=== PATIENT | female | born 1990 | race African-American/Black ===

== ENCOUNTER 2019-09-17 09:40 | Emergency (ER) | payer MEDICAID ==
[~2019-09-17] VITALS: Ht 165.1 cm; Wt 73.0 kg
--- NOTE | 2019-09-17 10:32 | Emergency Room Report ---
History of Present Illness General Chief Complaint: Upper Respiratory Illness Source: Patient Present Illness HPI Disclaimer: Please note that this report is being documented using DRAGON technology. This can lead to erroneous entry secondary to incorrect interpretation by the dictating instrument. HPI: Otherwise healthy 29-year-old female presents for evaluation of cough. Symptoms present for 3 days. She notes a persistent nonproductive cough and chest congestion. Denies fevers, chills, sore throat, nasal congestion, rhinorrhea, abdominal pain, nausea, vomiting, fever, chills. She feels a little bit weak. Last night she felt wheezy. Otherwise in her usual state of health. No history of asthma or other respiratory disease. Allergies: Coded Allergies: No Known Allergies (Unverified , 09/17/19) Patient History Now: No Review of Systems All Other Systems: negative except mentioned in HPI Physical Exam Vital Signs Date Time Temp Pulse Resp B/P (MAP) Pulse Ox O2 Delivery O2 Flow Rate FiO2 09/17/19 09:49 97.9 60 18 138/91 (107) 99 Room Air General: Awake and alert, no acute distress HEENT: NC/AT. EOMI. PERRLA. Moist mucous membranes. Throat is nonerythematous , no edema, no exudate. Tympanic membranes are pearly bell nonbulging with clear landmarks and no effusions bilaterally. Resp: Normal work of breathing. Mild cough appreciated. There are some coarse upper respiratory sounds reserve radiating down into the chest but otherwise no crackles, no wheezes. Skin: Intact. No abrasions, laceration or rash over the exposed skin MSK: Normal tone and bulk. Moving all extremities. No obvious deformity. Neuro: Awake and alert. Mentating appropriately Medical Decision Making Diagnostic Impression: Primary Impression: Cough Additional Impression: Respiratory tract infection ER Course 29-year-old female presents for evaluation of 3 days cough and chest congestion. She is very concerned and anxious that she may have a possible pneumonia as she has had in the past. We did obtain an x-ray which shows no evidence of infiltrate effusion or other abnormalities. Likely a viral syndrome. Will discharge with symptomatic medication. She can follow-up with her PMD. We discussed reasons to return to the emergency department. She understands and agrees with this treatment plan. Chest X-Ray Diagnostic Results Chest X-Ray Diagnostic Results : Chest X-Ray Ordered: Yes # of Views/Limited/Complete: 1 View Indication: Shortness of Breath Interpretation: no consolidation, no effusion, no pneumothorax, no acute cardiopulmonary disease Impression: No acute disease Electronically Signed by: Electronically signed by Dr. Lester Perales Last Vital Signs Date Time Temp Pulse Resp B/P (MAP) Pulse Ox O2 Delivery O2 Flow Rate FiO2 09/17/19 09:49 97.9 60 18 138/91 (107) 99 Room Air Disposition: HOME, SELF-CARE Condition: Stable Scripts Guaifenesin/Codeine (Guaifenesin-Codeine Syrup) 5 Ml Liquid 5 ML ORAL Q6H PRN for For Cough, #118 ML Prov: Lester Perales MD 09/17/19 Lester Perales MD Sep 17, 2019 10:32
--- NOTE | 2019-09-17 11:09 | Diagnostic Imaging Report ---
Indication: Cough Comparison: None A single view chest radiograph was obtained. Findings: Cardiomediastinal appearance is within normal limits for age. The lungs are clear. Pulmonary vascularity is appropriate. The diaphragmatic contour is smooth and costophrenic angles are sharp. No pleural effusions are identified. The bones are unremarkable. Impression: No acute findings
[2019-09-17] MEDS ORDERED: ROBITUSSIN AC5 ML ORAL (11:10)
--- NOTE | 2019-09-17 11:15 | NUR ---
ER DISCHARGE NOTE: Patient is cleared to be discharged per ERMD, pt is aox4, on room air, with stable vital signs. pt was given dc and prescription instructions, pt was able to verbalize understanding, pt is able to ambulate with steady gait. pt took all belongings.
[2019-09-17 12:29] VITALS: BP 138/91
== END 2019-09-17 11:20 | disposition home or self-care (01) ==
LOC: EMR 10:30
DX: J98.8 Other specified respiratory disorders (principal); R05 Cough
CPT/HCPCS: 71045; Z7502; 99283

== ENCOUNTER 2020-07-15 19:34 | Emergency (ER) | payer MEDICAID ==
[~2020-07-15] VITALS: Ht 165.1 cm; Wt 81.6 kg
[~2020-07-15 19:34] MED LIST: ROBITUSSIN AC5 ML ORAL
--- NOTE | 2020-07-15 20:47 | Emergency Room Report ---
Physical Exam Vital Signs Date Time Temp Pulse Resp B/P (MAP) Pulse Ox O2 Delivery O2 Flow Rate FiO2 07/15/20 19:46 97.9 75 18 126/88 (101) 97 Room Air Medical Decision Making ER Course Patient left after triage from prior to being seen by provider. Last Vital Signs Date Time Temp Pulse Resp B/P (MAP) Pulse Ox O2 Delivery O2 Flow Rate FiO2 07/15/20 19:46 97.9 75 18 126/88 (101) 97 Room Air Disposition: LEFT W/OUT BEING SEEN Referrals: NON PHYSICIAN (PCP) Tori Tolentino M.D. Jul 15, 2020 20:47
[2020-07-15 21:30] VITALS: BP 126/88
--- NOTE | 2020-07-15 21:30 | NUR ---
ED Nurse Note: Patient left without being seen
== END 2020-07-15 22:30 | disposition left against medical advice (07) ==
LOC: EMR 19:50
DX: R07.9 Chest pain, unspecified (principal); Z53.21 Procedure and treatment not carried out due to patient leaving prior to being seen by health care provider

== ENCOUNTER 2020-07-15 22:21 | Emergency (ER) | payer MEDICAID ==
[~2020-07-15] VITALS: Ht 167.6 cm; Wt 83.5 kg
[2020-07-15 22:29] VITALS: BP 137/83
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
--- NOTE | 2020-07-15 22:37 | NUR ---
ED Nurse Note: Pt went down to xray via w/c accompanied by xray staff.
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
--- NOTE | 2020-07-15 22:38 | NUR ---
ER DISCHARGE NOTE: Patient is cleared to be discharged per ERMD, pt is aox4, on room air, with stable vital signs. pt was given dc instructions, pt was able to verbalize understanding, pt id band removed without complications. pt is able to ambulate with steady gait. pt took all belongings.
[2020-07-15 22:50] VITALS: BP 112/72
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
== END 2020-07-15 22:50 | disposition home or self-care (01) ==
LOC: EMR 22:48
DX: S20.211A Contusion of right front wall of thorax, initial encounter (principal); V47.5XXA Car driver injured in collision with fixed or stationary object in traffic accident, initial encounter; Y92.411 Interstate highway as the place of occurrence of the external cause; Z86.79 Personal history of other diseases of the circulatory system
CPT/HCPCS: 71046; Z7502; 99283